=== PATIENT | female | born 1935 | race Caucasian/White ===

== ENCOUNTER 2016-10-10 23:59 | Emergency (ER) | payer MEDICARE, OTHER ==
[2016-10-11 02:10] LABS: BASOPHILS 0.4 %; BASOPHILS ABSOLUTE 0.02 10/3/uL (0.0-0.16); EOSINOPHILS 3.3 %; EOSINOPHILS ABSOLUTE 0.17 10/3/uL (0.0-0.53); ER CBC TAT 0 Hrs 05 Mins; HEMATOCRIT 35.5 % (36.0-48.0); HEMOGLOBIN 12.2 g/dL (12.0-16.0); IMMATURE GRANULOCYTES 0.4 %; IMMATURE GRANULOCYTES ABSOLUTE 0.02 10/3/uL (0.0-0.11); LYMPHOCYTES 28.7 %; LYMPHOCYTES ABSOLUTE 1.47 10/3/uL (0.67-4.30); MEAN CORPUS HGB CONC 34.4 g/dL (32.0-36.0); MEAN CORPUSCULAR HEMOGLOB 31.5 pg (26.0-34.0); MEAN CORPUSCULAR VOLUME 91.7 fL (80-100); MEAN PLATELET VOLUME 9.1 fL (9.2-13.0); MONOCYTES 11.7 %; NEUTROPHILS 55.5 %; NEUTROPHILS ABSOLUTE 2.85 10/3/uL (2.02-8.40); PLATELET COUNT 173 10/3/uL (150-400); RBC DISTRIBUTION WIDTH 13.5 % (12.0-16.0); RED CELL COUNT 3.87 10/6/uL (4.0-5.6); WHITE BLOOD CELLS 5.1 10/3/uL (4.5-10.5)
[2016-10-11 02:12] LABS: MANUAL DIFF NO %
[2016-10-11 02:19] LABS: PARTIAL THROMBO TIME 34.3 SEC (22.5-37.2); PROTIME (NOT ORD) 12.9 SEC (12.0-14.5)
[2016-10-11 02:27] LABS: BUN (BLOOD UREA NITROGEN) 21 MG/DL (6-23); CALCIUM, SERUM 9.7 MG/DL (8.5-10.4); CHEST PAIN PROFILE TAT 0 Hrs 22 Mins; CHLORIDE, SERUM 104 MMOL/L (96-112); CO2 (CARBON DIOXIDE) 31 MMOL/L (24-34); CREATININE 1.35 MG/DL (0.55-1.02); GFR AFRICAN AMERICAN 43 ML/MIN (>=60); GFR NON AFRICAN AMERICAN 37 ML/MIN (>=60); GLUCOSE, SERUM 98 MG/DL (60-99); POTASSIUM, SERUM 4.1 MMOL/L (3.5-5.3); SODIUM, SERUM 139 MMOL/L (135-148); TROPONIN I <0.02 NG/ML (<0.05)
[2016-10-17] MEDS ORDERED: LOFIBRA54 MG PO (14:20)
[2016-10-17] MEDS ORDERED: CENTRUM PO (14:20)
[2016-10-17] MEDS ORDERED: PREDNISONE2.5 MG PO (14:20)
[2016-10-17] MEDS ORDERED: CALTRA600D PO (14:21)
[2016-10-17] MEDS ORDERED: NEXIUM40 PO (14:21)
[2016-10-17] MEDS ORDERED: ENDOCET1 TA3 PO (14:22)
[2016-10-17] MEDS ORDERED: MYRBETRIQ50 MG PO (14:23)
[2016-10-17] MEDS ORDERED: PLAQ200B PO (14:23)
[2016-10-17] MEDS ORDERED: ADALAT CC60 MG PO (14:24)
[2016-10-17] MEDS ORDERED: DEPO-ESTRAD5 MG/1 ML IM (14:24)
[2016-10-17] MEDS ORDERED: B121000P IM (14:24)
[2016-10-17] MEDS ORDERED: NEUR300 PO (14:24)
[2016-10-17] MEDS ORDERED: VITAMIN D2000 UNIT PO (14:25)
[2016-10-17] MEDS ORDERED: MTX50 SQ (14:25)
[2016-10-17] MEDS ORDERED: FOLIC PO (14:25)
[2016-10-17] MEDS ORDERED: VALIUM10 MG PO (14:26)
[2016-10-17] MEDS ORDERED: DIOV160 PO (14:26)
[2016-10-17] MEDS ORDERED: ZYRTEC ALLGY10 MG PO (14:27)
[2016-10-17] MEDS ORDERED: [UNRECOGNIZED DRUG - CODE] PO (14:28)
[2016-10-17] MEDS ORDERED: ASAB PO (14:29)
[2016-10-17] MEDS ORDERED: ZESTRIL40 MG PO (14:29)
[2016-10-17] MEDS ORDERED: CAT2 PO (14:29)
[2016-10-17] MEDS ORDERED: ENDOCET1 TA1 PO (14:34)
[2016-10-21] MEDS ORDERED: VIST25 PO ×2 (11:15→12:55)
[2016-10-21] MEDS ORDERED: DIL2TAB (11:15)
[2016-10-21] MEDS ORDERED: ADALAT CC90 MG PO (12:47)
[2016-10-21] MEDS ORDERED: CAT2 (12:48)
[2016-10-21] MEDS ORDERED: DSS (12:50)
== END 2016-10-11 05:25 | disposition home or self-care (01) ==
LOC: ER 23:59
PROVIDERS: Nurse Practitioner Acute Care
PROC: 2W3AX1Z Immobilization of Right Upper Arm using Splint (ICD-10-PCS; principal; 2016-10-10)
DX: S42.341A Displaced spiral fracture of shaft of humerus, right arm, initial encounter for closed fracture (principal); I10 Essential (primary) hypertension; K21.9 Gastro-esophageal reflux disease without esophagitis; F32.9 Major depressive disorder, single episode, unspecified; M06.9 Rheumatoid arthritis, unspecified; Z88.1 Allergy status to other antibiotic agents; W19.XXXA Unspecified fall, initial encounter
CPT/HCPCS: 71010; 73060-RT; 80048; 83735; 84484; 85025; 85610; 85730; 93005; 96374; 96375; 96376; 99284; A9270-GY; J1170; J2405